=== PATIENT | male | born 1950 | race Asian ===

== ENCOUNTER 2024-05-12 08:00 | Outpatient (CLI) | payer BC | END 2024-05-12 08:01 | disposition home or self-care (01) | LOC: PET 08:00 | PROVIDERS: ATTEND Internal Medicine Hematology & Oncology | DX: C16.0 Malignant neoplasm of cardia (principal); K31.89 Other diseases of stomach and duodenum | CPT/HCPCS: 78815; A9552 ==

== ENCOUNTER 2024-05-15 09:06 | Day surgery (SDC) | payer BC ==
[2024-05-15] MEDS ORDERED: Sodium Bicarbonate 2.5 MEQ/5 ML SDV ONE (10:08)
[2024-05-15] MEDS ORDERED: Sodium Chloride 0.9% 500 ML ONE (10:09)
[2024-05-15] MEDS ORDERED: Lidocaine 1% w/Epinephrine 1:100K 20 ML VIAL ONE (10:12)
[2024-05-15] MEDS ORDERED: CEFAZOLIN 1 GM VIAL ONE ×2 (10:38→10:39)
[2024-05-15] MEDS ORDERED: fentaNYL 50 mcg/mL 1 mL Vial ONE (10:38)
[2024-05-15] MEDS ORDERED: Midazolam HCl 2 mg/2 ml Vial ONE (10:39)
== END 2024-05-15 13:45 | disposition home or self-care (01) ==
LOC: SPEC 09:06
PROVIDERS: ATTEND Internal Medicine Hematology & Oncology
PROC: 0JH60WZ Insertion of Totally Implantable Vascular Access Device into Chest Subcutaneous Tissue and Fascia, Open Approach (ICD-10-PCS; principal; 2024-05-15)
DX: C16.0 Malignant neoplasm of cardia (principal); E78.00 Pure hypercholesterolemia, unspecified; Z79.899 Other long term (current) drug therapy
CPT/HCPCS: 36561; 71045; 76937; 77001; 99152; 99153; C1788; J0690; J1642; J2250; J3010; J7030

== ENCOUNTER → 2024-05-17 | Day surgery (SDC) | payer BC ==
[~2024-05-17] MED LIST: Acetaminophen 500 MG TAB PO SCH; diphenhydrAMINE 25 MG CAP PO SCH
[2024-05-17] MEDS: diphenhydrAMINE 25 MG CAP ONE (14:01)
[2024-05-17] MEDS: Acetaminophen 500 MG TAB ONE (14:01)
[2024-05-17 16:25] VITALS: BP 100/57; TEMP 98.5
== END ==
LOC: ONC/OP 13:41
PROVIDERS: ATTEND Internal Medicine Hematology & Oncology
DX: D64.9 Anemia, unspecified (principal); D69.6 Thrombocytopenia, unspecified
CPT/HCPCS: 36430; 86850; 86900; 86901; P9016

== ENCOUNTER 2024-05-18 14:19 | Day surgery (SDC) | payer BC ==
[2024-05-18] MEDS ORDERED: Acetaminophen 500 MG TAB ONE (14:35)
[2024-05-18] MEDS ORDERED: diphenhydrAMINE 25 MG CAP ONE (14:36)
[2024-05-18] MEDS: diphenhydrAMINE 25 MG CAP PO SCH (14:37)
[2024-05-18] MEDS: Acetaminophen 500 MG TAB PO SCH (14:37)
[2024-05-18 16:50] VITALS: BP 100/55; TEMP 97.7
== END 2024-05-18 16:50 | disposition home or self-care (01) ==
LOC: ONC/OP 14:19
PROVIDERS: ATTEND Internal Medicine Hematology & Oncology
DX: D64.9 Anemia, unspecified (principal); D69.6 Thrombocytopenia, unspecified
CPT/HCPCS: 36430; 86850; 86900; 86901; J1642; P9016

== ENCOUNTER 2024-06-09 11:05 | Day surgery (SDC) | payer BC ==
[2024-06-09 13:37] VITALS: TEMP 98
[2024-06-09 16:24] VITALS: BP 118/68
== END 2024-06-09 16:11 | disposition home or self-care (01) ==
LOC: ONC/OP 11:05
PROVIDERS: ATTEND Internal Medicine Hematology & Oncology
DX: D64.9 Anemia, unspecified (principal); D69.6 Thrombocytopenia, unspecified
CPT/HCPCS: 36430; 86850; 86900; 86901; J1642; P9016

== ENCOUNTER 2025-07-24 12:30 | Outpatient (CLI) | payer BC | END 2025-07-24 12:31 | disposition home or self-care (01) | LOC: PET 12:30 | PROVIDERS: ATTEND Internal Medicine Hematology & Oncology | DX: C61 Malignant neoplasm of prostate (principal); C16.0 Malignant neoplasm of cardia; C7A.1 Malignant poorly differentiated neuroendocrine tumors; D50.8 Other iron deficiency anemias; N40.0 Benign prostatic hyperplasia without lower urinary tract symptoms | CPT/HCPCS: 78815; A9595-JZ ==